=== PATIENT | male | born 1995 ===

== ENCOUNTER 2019-07-26 10:24 | Emergency (ER) | payer SELFPAY ==
[~2019-07-26] VITALS: Ht 152.4 cm; Wt 45.5 kg
[2019-07-26 10:29] VITALS: BP 118/74
--- NOTE | 2019-07-26 10:35 | NUR ---
pt left after triage
== END 2019-07-26 11:23 | disposition left against medical advice (07) ==
LOC: ER 10:26
DX: J02.9 Acute pharyngitis, unspecified (principal); Z53.21 Procedure and treatment not carried out due to patient leaving prior to being seen by health care provider